=== PATIENT | male | born 2000 | race Caucasian/White ===

== ENCOUNTER → 2018-11-10 | Outpatient (CLI) | payer OTHER ==
--- NOTE | 2018-11-10 10:41 | REP ---
RIGHT KNEE, FIVE VIEWS: HISTORY: Pain. There is no acute fracture or dislocation. The joint spaces are normal in appearance. IMPRESSION: There is no acute fracture or dislocation. Electronically Signed by Christian Arriola MD 11/10/2018 10:44 A
== END ==
LOC: M LRY 09:50
PROVIDERS: ATTEND Nurse Practitioner Family
DX: M25.561 Pain in right knee (principal)
CPT/HCPCS: 73564; G0463